=== PATIENT | female | born 1955 | race Hispanic/Latino ===

== ENCOUNTER 2018-08-10 10:43 | Emergency (ER) | payer OTHER ==
[~2018-08-10] VITALS: Ht 172.7 cm; Wt 90.7 kg
[~2018-08-10 10:43] MED LIST: DICYCLOMINE HCL20 MG PO; NORCO 7.5-3251 EACH PO; ONDANSETRON ODT4 M1 PO; PROTONIX40 M2 PO; Z.0.ATENOLOL100 MG PO; Z.0.SUCRALFATE1 GM PO
[2018-08-10] MEDS ORDERED: ONDANSETRON HCL INJ 2 MG/ML VIAL IV STA (10:52)
[2018-08-10] MEDS ORDERED: MORPHINE SULFATE 5 MG/ML VIAL IV ONE (11:00)
[2018-08-10] MEDS ORDERED: MORPHINE SULFATE INJ 4 MG/ML INJ IV NR (11:15)
[2018-08-10 11:16] LABS: BASOPHILS # (AUTO) 0.1 (0.0-0.1); BASOPHILS % 0.6 % (0.0-1.0); EOSINOPHILS # (AUTO) 0.2 (0.0-0.4); EOSINOPHILS % 1.2 % (0.0-6.0); HEMATOCRIT 42.6 % (34.2-44.1); HEMOGLOBIN 14.4 g/dL (12.0-16.0); MEAN CORPUSCULAR HEMOGLOBIN 30.6 pg (28-32); MEAN CORPUSCULAR HGB CONC 33.8 g/dL (31-35); MEAN CORPUSCULAR VOLUME 90.6 fL (81-99); MONOCYTES # (AUTO) 1.1 (0.2-0.8); MONOCYTES % 8.9 % (4.4-11.3); NEUTROPHILS # (AUTO) 5.1 (2.1-6.9); NEUTROPHILS % 41.1 % (38.7-80.0); PLATELET COUNT 466 x10e3/uL (140-360); RED CELL DISTRIBUTION WIDTH 13.6 % (11.7-14.4)
--- NOTE | 2018-08-10 11:18 | Diagnostic Imaging Report ---
EXAM: XR CHEST 1 VIEW DATE: 08/10/2018 10:49 AM INDICATION: Pain COMPARISON: None FINDINGS: Lines and Tubes: None Heart and Mediastinum: No acute cardiomediastinal findings. Lungs and Pleura: No significant pleural effusion, pneumothorax, or focal consolidation. Bones and Soft Tissues: No acute findings. IMPRESSION: 1. No acute cardiopulmonary findings. Signed by: Dr. Anuj Dupree MD on 08/10/2018 11:14 AM
[2018-08-10 11:36] LABS: ALBUMIN 3.9 g/dL (3.5-5.0); ALBUMIN/GLOBULIN RATIO 0.9 (0.8-2.0); ANION GAP 15.4 mmol/L (8-16); CALCIUM 9.6 mg/dL (8.4-10.2); POTASSIUM 4.4 mmol/L (3.5-5.1)
[2018-08-10 11:53] LABS: CREATINE KINASE 83 IU/L (29-168); LIPASE 59 U/L (8-78)
[2018-08-10] MEDS ORDERED: FENTANYL CITRATE/PF 100MCG/2 ML INJ IV ONE (12:00)
[2018-08-10] MEDS ORDERED: SODIUM CHLORIDE 0.9% 500ML 500 ML IV ONE (13:00)
[2018-08-10 14:02] LABS: COLOR,URINE YELLOW (YELLOW)
[2018-08-10 14:03] LABS: BILIRUBIN,URINE NEGATIVE (NEGATIVE); CLARITY,URINE SL CLOUDY (CLEAR); KETONES,URINE NEGATIVE (NEGATIVE); LEUKOCYTE ESTERASE ,URINE TRACE (NEGATIVE); NITRITE,URINE NEGATIVE (NEGATIVE); PROTEIN,URINE DIPSTICK NEGATIVE (NEGATIVE); URINE UROBILINOGEN 0.2 mg/dL (0.2 - 1)
[2018-08-10] MEDS ORDERED: IOPAMIDOL 370 MG/ML 200 ML INFUS..BTL INJ ONE (14:07)
--- NOTE | 2018-08-10 14:19 | Diagnostic Imaging Report ---
EXAM: CT of the abdomen and pelvis WITH contrast HISTORY: Abdominal pain, epigastric pain, nausea, diarrhea status post hysterectomy and hernia repair COMPARISON: CT of the abdomen and pelvis July 18, 2017. TECHNIQUE: The abdomen and pelvis were scanned utilizing a multidetector helical scanner. Coronal and sagittal reformats are provided. PROTOCOL: Routine IV CONTRAST: 100 cc of Isovue-370. ORAL CONTRAST: None, which limits sensitivity and specificity of the exam. RADIATION DOSE: Total DLP: 686.28 mGy*cm Estimated effective dose: (DLP x 0.015 x size factor) Dose modulation, iterative reconstruction, and/or weight based adjustment of the mA/kV was utilized to reduce the radiation dose to as low as reasonably achievable. COMPLICATIONS: None FINDINGS: LINES and TUBES: None. LOWER THORAX: Unremarkable HEPATOBILIARY: Punctate calcification at the posterior and inferior aspect of the right lobe. Subtle heterogeneous density, without a discrete focal hepatic lesion. Mild prominence of the common bowel duct and minimal central intrahepatic biliary dilatation most suggestive of reservoir effect. GALLBLADDER: Status post cholecystectomy. SPLEEN: Not visualized. Stable small splenules abutting the posterior aspect of the pancreatic tail. PANCREAS: No focal masses or ductal dilatation. ADRENALS: No adrenal nodules. KIDNEYS/URETERS: Mild bilateral cortical renal scarring. Kidneys enhance symmetrically. No hydronephrosis. No cystic or solid mass lesions. No stones. GI TRACT: Stable post surgical changes of the proximal stomach. No abnormal distention, wall thickening, or evidence of bowel obstruction. Stable small diverticulum second portion of duodenum. The appendix remains normal. PELVIC ORGANS/BLADDER: Status post hysterectomy. The urinary bladder is partially decompressed, which slightly limits evaluation. LYMPH NODES: No lymphadenopathy. VESSELS: Unremarkable. PERITONEUM / RETROPERITONEUM: No free air or fluid. BONES: Unremarkable. SOFT TISSUES: Stable small fat-containing periumbilical hernia. Stable small fat-containing defects in the supraumbilical region. Stable large lobulated calcified mass in the region of the right adductor musculature medial to the lesser trochanter. IMPRESSION: 1. No acute abdominal or pelvic abnormality. 2. Status post cholecystectomy, hysterectomy, postsurgical changes of the stomach and hernia repair 3. Stable small duodenal diverticulum. 4. Stable small fat-containing periumbilical hernia and supraumbilical mild fat herniation. Signed by: Dr. Chandan Castillo D.Aminta., M.M.M. on 08/10/2018 2:15 PM
[2018-08-10 14:27] LABS: BACTERIA,URINE FEW /HPF; EPITHELIAL CELLS,URINE MODERATE /LPF
[2018-08-10] MEDS ORDERED: ZANTAC 7575 MG PO (14:51)
--- OUTSIDE RECORDS SUMMARY | 2018-08-21 11:07 | XMS REPORT ---
Author Author [facility] Address Unknown Phone Unavailable Care Team Providers [facility] Licensed Practical Nurse Name Role Phone Devyn MOONEY Unavailable Unavailable Saurabh HARVEY Unavailable Unavailable Problems This patient has no known problems. Allergies, Adverse Reactions, Alerts This patient has no known allergies or adverse reactions. Medications This patient has no known medications. Results Test Description Test Time Test Comments Text Results Atomic Results Result Comments CT ABDOMEN/PELVIS W 2018-08-10 13:56:00 [place] [address] Patient Name: DANIS MATTHEWS MR #: [id number] : 1955 Age/Sex: 62/F Req #: [id number] Adm Physician: Ordered by: ATILIO MOONEY MD Report #: [id number] Location: ER Room/Bed: Procedure: [id number] CT/CT ABDOMEN/PELVIS W Exam Date: 08/10/18 Exam Time: 1321 REPORT STATUS: Signed EXAM: CT of the abdomen and pelvis WITH contrast HISTORY: Abdominal pain, epigastric pain, nausea, diarrhea status post hysterectomy and hernia repair COMPARISON: CT of the abdomen and pelvis July 18, 2017. TECHNIQUE: The abdomen and pelvis were scanned utilizing a multidetector helical scanner. Coronal and sagittal reformats are provided. PROTOCOL: Routine IV CONTRAST: 100 cc of Isovue-370. ORAL CONTRAST: None, which limits sensitivity and specificity of the exam. RADIATION DOSE: Total DLP: 686.28 mGy*cm Estimated effective dose: (DLP x 0.015 x size factor) Dose modulation, iterative reconstruction, and/or weight based adjustment of the mA/kV was utilized to reduce the radiation dose to as low as reasonably achievable. COMPLICATIONS: None FINDINGS: LINES and TUBES: None. LOWER THORAX: Unremarkable HEPATOBILIARY: Punctate calcification at the posterior and inferior aspect of the right lobe. Subtle heterogeneous density, without a discrete focal hepatic lesion. Mild prominence of the common bowel duct and minimal central intrahepatic biliary dilatation most suggestive of re servoir effect. GALLBLADDER: Status post cholecystectomy. SPLEEN: Not visualized. Stable small splenules abutting the posterior aspect of the pancreatic tail. PANCREAS: No focal masses or ductal dilatation. ADRENALS: No adrenal nodules. KIDNEYS/URETERS: Mild bilateral cortical renal scarring. Kidneys enhance symmetrically. No hydronephrosis. No cystic or solid mass lesions. No stones. GI TRACT: Stable post surgical changes of the proximal stomach. No abnormal distention, wall thickening, or evidence of bowel obstruction. Stable small diverticulum second portion of duodenum. The appendix remains normal. PELVIC ORGANS/BLADDER: Status post hysterectomy. The urinary bladder is partially decompressed, which slightly limits evaluation. LYMPH NODES: No lymphadenopathy. VESSELS: Unremarkable. PERITONEUM / RETROPERITONEUM: No free air or fluid. BONES: Unremarkable. SOFT TISSUES: Stable small fat-containing periumbilical hernia. Stable small fat-containing defects in the supraumbilical region. Stable large lobulated calcified mass in the region of the right adductor musculature medial to the lesser trochanter. IMPRESSION: 1. No acute abdominal or pelvic abnormality. 2. Status post cholecystectomy, hysterectomy, postsurgical changes of the stomach and hernia repair 3. Stable small duodenal diverticulum. 4. Stable small fat-containing periumbilical hernia and supraumbilical mild fat herniation. Signed by: Dr. Earl Castillo, D.O., M.M.M. on 08/10/2018 2:15 PM Dictated By: EARL CASTILLO DO 1415 Transcribed By: LEONIDES on 08/10/18 1416 COPY TO: ATILIO MOONEY MD CHEST SINGLE (PORTABLE) 2018-08-10 11:14:00 [facility] [place] [address] Patient Name: DANIS MATTHEWS MR #: [id number] : 1955 Age/Sex: 62/F Req #: [id number] Adm Physician: Ordered by: ATILIO MOONEY MD Report #: [id number] Location: ER Room/Bed: Procedure: [id number] DX/CHEST SINGLE (PORTABLE) Exam Date: 08/10/18 Exam Time: 1100 REPORT STATUS: Signed EXAM: XR CHEST 1 VIEW DATE: 08/10/2018 10:49 AM INDICATION: Pain COMPARISON: None FINDINGS: Lines and Tubes: None Heart and Mediastinum: No acute cardiomediastinal findings. Lungs and Pleura: No significant pleural effusion, pneumothorax, or focal consolidation. Bones and Soft Tissues: No acute findings. IMPRESSION: 1. No acute cardiopulmonary findings. Signed by: Dr. Anuj Dupree MD on 08/10/2018 11:14 AM Dictated By: ANUJ DUPREE MD 1114 Transcribed By: LEONIDES on 08/10/18 1114 COPY TO: ATILIO MOONEY MD CT ABDOMEN/PELVIS W [place] [address] Patient Name: DANIS MATTHEWS MR #: [id number] : 1955 Age/Sex: 61/F Req #: [id number] Adm Physician: Ordered by: JEANNETTE HARVEY MD Report #: [id number] Location: CT Room/Bed: Procedure: [id number] CT/CT ABDOMEN/PELVIS W Exam Date: 07/18/17 Exam Time: 1220 REPORT STATUS: Signed EXAM: CT Abdomen and Pelvis WITH contrast INDICATION: Abdominal pain. COMPARISON: None. TECHNIQUE: Abdomen and pelvis were scanned utilizing a multidetector helical scanner from the lung base to the pubic symphysis after administration of IV contrast. Coronal and sagittal reformations were obtained. Routine protocol was performed. Scan was performed when during portal venous phase. IV CONTRAST: 150 mL of Omnipaque 300 ORAL CONTRAST: Water RADIATION DOSE: Total DLP: 744.25 mGy*cm Estimated effective dose: (DLP x 0.015 x size factor) mSv COMPLICATIONS: None FINDINGS: LINES and TUBES: None. LOWER THORAX: Unremarkable HEPATOBILIARY: No focal hepatic lesions. Mild prominence of the common bowel duct and minimal central intrahepatic biliary dilatation most suggestive of reservoir effect. GALLBLADDER: Status post cholecystectomy. SPLEEN: Not visualized. Small splenules abutting the posterior aspect of the pancreatic tail on image 23 series 2. PANCREAS: No focal masses or ductal dilatation. ADRENALS: No adrenal nodules. KIDNEYS/URETERS: Mild bilateral cortical renal scarring. Kidneys enhance symm etrically. No hydronephrosis. No cystic or solid mass lesions. No stones. GI TRACT: No abnormal distention, wall thickening, or evidence of bowel obstruction. There is a small diverticulum second portion of duodenum at the level of the right middle ampulla, measuring 1.9 cm on image 35 series 2. Tiny sigmoid diverticula without diverticulitis. Appendix is normal. PELVIC ORGANS/BLADDER: Status post hysterectomy. LYMPH NODES: No lymphadenopathy. VESSELS: Unremarkable. PERITONEUM / RETROPERITONEUM: No free air or fluid. 8 mm phlebolith in the left retroperitoneum on image 54 series 2. BONES: Unremarkable. SOFT TISSUES: Tiny fat-containing periumbilical hernia. Tiny defects in the supraumbilical region in the midline on image 34 series 2. Lobulated calcified mass in the right adductor musculature between the right inferior pubic ramus and lesser trochanter measuring 6.1 x 3.4 cm on image 90 series 2 consistent with myositis ossificans. IMPRESSION: 1. No acute abdominal pelvic abnormality. Tiny fat-containing periumbilical hernia. 2. Status post cholecystectomy. No significant biliary dilatation. 3. Small, 1.9 cm duodenal diverticulum. 4. Status post hysterectomy. Signed by: Dr. Pete Ayoub M.D. on 07/18/2017 2:24 PM Dictated By: DONG AYOUB MD, MD 1429 Transcribed By: LEONIDES on 07/18/17 1426 COPY TO: JEANNETTE HARVEY MD
== END 2018-08-10 15:36 | disposition home or self-care (01) ==
LOC: ER 10:43
DX: R10.13 Epigastric pain (principal); R10.84 Generalized abdominal pain; R19.7 Diarrhea, unspecified
CPT/HCPCS: 36415; 71045; 74177; 80053; 81001; 82550; 82553; 83605; 83690; 84484; 85025; 93005; 99284; J2270 ×2; J2405; J7040; Q9967

== ENCOUNTER 2023-10-05 01:48 | Emergency (ER) | payer OTHER ==
[~2023-10-05] VITALS: Ht 165.1 cm; Wt 93.4 kg
[~2023-10-05 01:48] MED LIST changes: +ZANTAC 7575 MG PO
[2023-10-05 03:08] LABS: BASOPHILS # (AUTO) 0.1 (0.0-0.1); BASOPHILS % 0.7 % (0.0-1.0); EOSINOPHILS # (AUTO) 0.3 (0.0-0.4); EOSINOPHILS % 1.8 % (0.0-6.0); HEMATOCRIT 41.6 % (34.2-44.1); LYMPHOCYTES % 49.8 % (18.0-39.1); MEAN CORPUSCULAR HEMOGLOBIN 30.6 pg (28-32); MEAN CORPUSCULAR HGB CONC 33.7 g/dL (31-35); MEAN CORPUSCULAR VOLUME 90.8 fL (81-99); MONOCYTES # (AUTO) 1.1 (0.2-0.8); MONOCYTES % 7.7 % (4.4-11.3); NEUTROPHILS # (AUTO) 5.6 (2.1-6.9); NEUTROPHILS % 39.6 % (38.7-80.0); PLATELET COUNT 408 x10e3/uL (140-360); RED BLOOD COUNT 4.58 x10e6/uL (3.6-5.1); RED CELL DISTRIBUTION WIDTH 13.6 % (11.7-14.4); WHITE BLOOD COUNT 14.15 x10e3/uL (4.8-10.8)
[2023-10-05 03:55] LABS: ALBUMIN 3.8 g/dL (3.5-5.0); ALBUMIN/GLOBULIN RATIO 1.1 (0.8-2.0); ANION GAP 14.5 mmol/L (8-16); BILIRUBIN,TOTAL 1.2 mg/dL (0.2-1.2); CREATININE, SERUM 0.88 mg/dL (0.57-1.11); TOTAL PROTEIN 7.3 g/dL (6.5-8.1)
[2023-10-05 04:01] LABS: TROPONIN I 0.01 ng/mL (0-0.300)
[2023-10-05 04:08] LABS: POTASSIUM 3.5 mmol/L (3.6-4.7)
[2023-10-05] MEDS ORDERED: VENTOLIN HFA18 GM INH (04:16)
[2023-10-05] MEDS ORDERED: PAXLOVID 300-11 EACH PO (04:16)
[2023-10-05] MEDS ORDERED: PREDNISONE20 MG PO (04:16)
[2023-10-05 04:37] VITALS: BP 120/71; PULSE 75; RESP 15; TEMP 97.9; O2SAT 98
[2023-10-05 07:16] LABS: BASOPHILS % (MANUAL) 2 % (0-1.5); EOSINOPHILS % (MANUAL) 2 % (0-7); LYMPHOCYTES % (MANUAL) 48 % (19-48); MONOCYTES % (MANUAL) 5 % (3.4-9.0); NEUTROPHILS % (MANUAL) 39 % (40-74); REACTIVE LYMPHOCYTES 4
[2023-10-05 07:17] LABS: PLATELET ESTIMATE ADEQUATE
[2023-10-05 07:18] LABS: PLATELET MORPHOLOGY COMMENT NORMAL
[2023-10-05 07:19] LABS: RBC MORPHOLOGY COMMENT NORMAL
== END 2023-10-05 04:40 | disposition home or self-care (01) ==
LOC: ER 02:00
DX: R06.00 Dyspnea, unspecified (principal); U07.1 COVID-19; I10 Essential (primary) hypertension
CPT/HCPCS: 36415; 71045; 80053; 82550; 83690; 83880; 84484; 85025; 85379; 99284; U0002